=== PATIENT | male | born 2000 ===

== ENCOUNTER 2020-03-19 04:20 | Emergency (ER) | payer SELFPAY ==
[2020-03-19] MEDS ORDERED: SODIUM CHLORIDE 0.9% 1000 ML 1,000 ML IV ONE (04:37)
--- NOTE | 2020-03-19 04:56 | XRay Report ---
RIGHT SHOULDER 3 VIEW INDICATION / CLINICAL INFORMATION: fall with pain and lac. COMPARISON: None available. FINDINGS: BONES/JOINT(S): No acute fracture or subluxation. No significant degenerative changes. SOFT TISSUES: No significant abnormality. No radiopaque foreign bodies or soft tissue gas. ADDITIONAL FINDINGS: None. Signer Name: Conner Anguiano MD Signed: 03/19/2020 4:51 AM Workstation Name: [id number]
[2020-03-19] MEDS ORDERED: oxyCODONE /ACETAMINOPHEN 5-325MG TAB PO ONE (05:02)
[2020-03-19] MEDS ORDERED: ONDANSETRON 4 MG ODT TAB PO ONE (05:02)
[2020-03-19] MEDS ORDERED: LIDOCAINE (1%) 10 MG/1 ML VIAL 20 ML MDV INFILTRATI ONE (05:18)
[2020-03-19] MEDS ORDERED: SODIUM CHLORIDE 0.9% IRR 500 ML BOTTLE IR ONE (05:21)
[2020-03-19 05:25] LABS: Basophils # (Auto) 0.1 K/mm3 (0.0-0.1); Basophils % (Auto) 0.4 % (0.0-1.8); Eosinophils # (Auto) 0.3 K/mm3 (0.0-0.4); Eosinophils % (Auto) 2.2 % (0.0-4.3); Hematocrit 43.4 % (35.5-45.6); Hemoglobin 14.8 gm/dl (11.8-15.2); Lymphocytes # (Auto) 2.8 K/mm3 (1.2-5.4); Lymphocytes % (Auto) 19.9 % (13.4-35.0); Mean Corpuscular HGB Conc 34 % (32-34); Mean Corpuscular Volume 92 fl (84-94); Monocytes % (Auto) 6.7 % (0.0-7.3); Platelet Count 233 K/mm3 (140-440); Red Blood Count 4.72 M/mm3 (3.65-5.03); Red Cell Distribution Width 13.3 % (13.2-15.2)
[2020-03-19 05:27] LABS: Alanine Aminotransferase 25 units/L (7-56); Albumin 4.9 g/dL (3.9-5); BUN/Creatinine Ratio 12; Blood Urea Nitrogen 13 mg/dL (9-20); Calcium 9.9 mg/dL (8.4-10.2); Hemolysis Index 4
[2020-03-19] MEDS ORDERED: DIPHtheria,PERTUSSIS(ACELL),TETANUS VACCINE/PF 0.5 ML VIAL IM ONE (05:41)
--- NOTE | 2020-03-19 05:46 | Cat Scan Report ---
CT head/brain wo con INDICATION: Head injury, loss of consciousness. TECHNIQUE: Routine CT head without contrast. All CT scans at this location are performed using CT dose reduction for ALARA by means of automated exposure control. COMPARISON: None. FINDINGS: BRAIN / INTRACRANIAL CONTENTS: No acute hemorrhage, brain edema, mass effect, or hydrocephalus. Cathie l peter-white differentiation. No chronic infarct or focal atrophy. Normal brain volume and ventricula r/sulcal size for age. CALVARIUM/SKULL BASE/CRANIOCERVICAL JUNCTION: No evidence of fracture. ORBITS: No significant abnormality of visualized orbits. SINUSES / MASTOIDS: No significant abnormality of visualized sinuses and mastoid air cells. ADDITIONAL FINDINGS: None. IMPRESSION: 1. No acute post-traumatic intracranial abnormality. Signer Name: Conner Anguaino MD Signed: 03/19/2020 5:41 AM Workstation Name: [id number]
--- NOTE | 2020-03-19 05:51 | Emergency Department Report ---
ED General Adult HPI - General Chief complaint: Wound/Laceration Stated complaint: FALL/LACERATION TO BACK Time Seen by Provider: 03/19/20 05:00 Source: patient Mode of arrival: Ambulatory Limitations: Language Barrier - History of Present Illness Initial comments: 19-year-old male patient presents with complaints of right shoulder laceration x tonight. Patient states he injured her shoulder via a skateboard accident. Patient states he is unsure of exactly what happened because he lost consciousness for an unknown amount of time. He does report a mild headache, but denies any nausea/vomiting, vision changes, dizziness, numbness/tingli ng/weakness in his limbs, neck pain, difficulty with speech/ambulation, back pain, or confusion. He rates his shoulder pain as a 9/10 in severity, but denies any difficulty moving the shoulder. Severity scale (0 -10): 8 - Related Data Previous Rx's Medication Instructions Recorded Last Taken Type Acetaminophen/Codeine [Tylenol 1 tab PO Q6H PRN #10 tab 03/19/20 Unknown Rx /Codeine # 3 tab] Doxycycline Monohydrate 100 mg PO BID 14 Days #28 capsule 03/19/20 Unknown Rx [Doxycycline Monohydrate CAP] Ibuprofen [Motrin 800 MG tab] 800 mg PO Q8HR PRN #21 tablet 03/19/20 Unknown Rx Allergies Allergy/AdvReac Type Severity Reaction Status Date / Time No Known Allergies Allergy Verified 03/19/20 04:29 ED Review of Systems ROS: Stated complaint: FALL/LACERATION TO BACK Other details as noted in HPI Constitutional: denies: fever, malaise Respiratory: denies: shortness of breath Cardiovascular: denies: chest pain Gastrointestinal: denies: abdominal pain, nausea, vomiting Musculoskeletal: arthralgia. denies: back pain Neurological: headache. denies: weakness, numbness, paresthesias, confusion, abnormal gait Hematological/Lymphatic: denies: easy bleeding ED Past Medical Hx - Past Medical History Previous Medical History?: No - Surgical History Past Surgical History?: No - Social History Smoking Status: Never Smoker Substance Use Type: None - Medications Home Medications: Home Medications Medication Instructions Recorded Confirmed Last Taken Type Acetaminophen/Codeine [Tylenol 1 tab PO Q6H PRN #10 tab 03/19/20 Unknown Rx /Codeine # 3 tab] Doxycycline Monohydrate 100 mg PO BID 14 Days #28 capsule 03/19/20 Unknown Rx [Doxycycline Monohydrate CAP] Ibuprofen [Motrin 800 MG tab] 800 mg PO Q8HR PRN #21 tablet 03/19/20 Unknown Rx ED Physical Exam - General Limitations: No Limitations General appearance: alert, in no apparent distress - Head Head exam: Present: atraumatic, normocephalic - Eye Eye exam: Present: normal appearance. Absent: scleral icterus - ENT ENT exam: Present: mucous membranes moist - Neck Neck exam: Present: normal inspection, full ROM. Absent: tenderness - Respiratory Respiratory exam: Present: normal lung sounds bilaterally. Absent: respiratory distress - Cardiovascular Cardiovascular Exam: Present: regular rate, normal rhythm, normal heart sounds - GI/Abdominal GI/Abdominal exam: Present: soft. Absent: distended, tenderness, guarding, rebound, rigid - Extremities Exam Extremities exam: Present: full ROM, other (11 cm wide jagged laceration noted to right upper shoulder without active bleeding-please see image in MDM) - Expanded Upper Extremity Exam Right Shoulder Exam: Present: full ROM, tenderness, laceration. Absent: deformity, tenderness over AC joint - Back Exam Back exam: Present: normal inspection. Absent: tenderness - Neurological Exam Neurological exam: Present: alert, oriented X3, CN II-XII intact, normal gait. Absent: motor sensory deficit - Expanded Neurological Exam Expanded Cerebellar function: Finger to Nose: Normal, Heel to Bernard: Normal, Romberg: Normal - Psychiatric Psychiatric exam: Present: normal affect, normal mood - Skin Skin exam: Present: warm, dry ED Course Vital Signs 03/19/20 03/19/20 03/19/20 04:26 05:01 05:02 Temperature 98.7 F Pulse Rate 92 H 72 69 Respiratory 18 12 15 Rate Blood Pressure 89/60 Blood Pressure 98/57 [Left] O2 Sat by Pulse 98 100 98 Oximetry 03/19/20 03/19/20 03/19/20 05:15 05:31 05:45 Temperature Pulse Rate 68 81 80 Respiratory 25 H 11 L 22 Rate Blood Pressure 98/57 98/57 98/57 Blood Pressure [Left] O2 Sat by Pulse 100 100 Oximetry 03/19/20 03/19/20 03/19/20 06:00 06:15 06:30 Temperature Pulse Rate 66 62 65 Respiratory 13 18 12 Rate Blood Pressure 95/55 98/57 93/51 Blood Pressure [Left] O2 Sat by Pulse 99 100 99 Oximetry 03/19/20 03/19/20 03/19/20 06:45 07:00 07:13 Temperature 98.1 F Pulse Rate 69 Respiratory 18 Rate Blood Pressure 93/51 110/63 Blood Pressure 109/64 [Left] O2 Sat by Pulse 99 100 Oximetry 03/19/20 07:15 Temperature Pulse Rate Respiratory 18 Rate Blood Pressure Blood Pressure [Left] O2 Sat by Pulse Oximetry - Procedure Description Procedures done: Betadine prep to wound. 20 cc of lidocaine without epi used to anesthetize area around wound. Wound thoroughly irrigated with 500 cc of saline. Extensive debridement of wound performed. Wet-to-dry dressing placed over wound. Patient tolerated procedure well without any immediate complications. ED Medical Decision Making - Lab Data Result diagrams: 03/19/20 04:48 03/19/20 04:48 Lab Results 03/19/20 03/19/20 Range/Units 04:48 04:48 WBC 14.3 H (4.5-11.0) K/mm3 RBC 4.72 (3.65-5.03) M/mm3 Hgb 14.8 (11.8-15.2) gm/dl Hct 43.4 (35.5-45.6) % MCV 92 (84-94) fl MCH 31 (28-32) pg MCHC 34 (32-34) % RDW 13.3 (13.2-15.2) % Plt Count 233 (140-440) K/mm3 Lymph % (Auto) 19.9 (13.4-35.0) % [place] % (Auto) 6.7 (0.0-7.3) % Eos % (Auto) 2.2 (0.0-4.3) % Baso % (Auto) 0.4 (0.0-1.8) % Lymph # (Auto) 2.8 (1.2-5.4) K/mm3 [place] # (Auto) 1.0 H (0.0-0.8) K/mm3 Eos # (Auto) 0.3 (0.0-0.4) K/mm3 Baso # (Auto) 0.1 (0.0-0.1) K/mm3 Seg Neutrophils % 70.8 H (40.0-70.0) % Seg Neutrophils # 10.1 H (1.8-7.7) K/mm3 Sodium 138 (137-145) mmol/L Potassium 3.6 (3.6-5.0) mmol/L Chloride 98.7 (98-107) mmol/L Carbon Dioxide 23 (22-30) mmol/L Anion Gap 20 mmol/L BUN 13 (9-20) mg/dL Creatinine 1.1 (0.8-1.3) mg/dL Estimated GFR > 60 ml/min BUN/Creatinine Ratio 12 % Glucose 114 H (75-100) mg/dL Calcium 9.9 (8.4-10.2) mg/dL Total Bilirubin 0.60 (0.1-1.2) mg/dL AST 37 (5-40) units/L ALT 25 (7-56) units/L Alkaline Phosphatase 90 (35-129) units/L Total Protein 7.2 (6.3-8.2) g/dL Albumin 4.9 (3.9-5) g/dL Albumin/Globulin Ratio 2.1 % - Radiology Data Radiology results: report reviewed CT head/brain wo con INDICATION: Head injury, loss of consciousness. TECHNIQUE: Routine CT head without contrast. All CT scans at this location are performed using CT dose reduction for ALARA by means of automated exposure control. COMPARISON: None. FINDINGS: BRAIN / INTRACRANIAL CONTENTS: No acute hemorrhage, brain edema, mass effect, or hydrocephalus. Normal peter-white differentiation. No chronic infarct or focal atrophy. Normal brain volume and ventricular/sulcal size for age. CALVARIUM/SKULL BASE/CRANIOCERVICAL JUNCTION: No evidence of fracture. ORBITS: No significant abnormality of visualized orbits. SINUSES / MASTOIDS: No significant abnormality of visualized sinuses and mastoid air cells. ADDITIONAL FINDINGS: None. IMPRESSION: 1. No acute post-traumatic intracranial abnormality. RIGHT SHOULDER 3 VIEW INDICATION / CLINICAL INFORMATION: fall with pain and lac. COMPARISON: None available. FINDINGS: BONES/JOINT(S): No acute fracture or subluxation. No significant degenerative changes. SOFT TISSUES: No significant abnormality. No radiopaque foreign bodies or soft tissue gas. ADDITIONAL FINDINGS: None. - Medical Decision Making 19-year-old male patient presents with complaints of right shoulder laceration x tonight. Patient states he injured her shoulder via a skateboard accident. Patient states he is unsure of exactly what happened because he lost consciousness for an unknown amount of time. He does report a mild headache, but denies any nausea/vomiting, vision changes, dizziness, numbness/tingling/weakness in his limbs, neck pain, difficulty with speech/ambulation, back pain, or confusion. He rates his shoulder pain as a 9/10 in severity, but denies any difficulty moving the shoulder. Patient mildly hypotensive with a BP of 89/60. Labs were ordered to further assess hypotension. CBC and CMP are normal. Patient given [address] head is normal. X-ray of the shoulder is negative for fracture. Significant laceration with road rash. Discussed patient in detail with Dr. Hoyt- recommended debridement and leaving wound open with placement of a wet-to-dry dressing. Patient given dose of doxycycline here in ED. Discussed in great detail importance of follow-up with wound care tomorrow. Also discussed wound care and signs and symptoms of infection that should prompt immediate return to the ED, patient verbalized understanding. Prescription for Doxy given for home. His vitals are normal, he is well-appearing, and stable for discharge home. Patient to also follow-up with primary care concerning for possible concussion. Discussed importance of brain rest and caregiver monitoring for the next 24 hours. Critical care attestation.: If time is entered above; I have spent that time in minutes in the direct care of this critically ill patient, excluding procedure time. ED Disposition Clinical Impression: Head injury with loss of consciousness Laceration of right shoulder Qualifiers: Encounter type: initial encounter Qualified Code(s): S41.011A - Laceration without foreign body of right shoulder, initial encounter Contusion of right shoulder Qualifiers: Encounter type: initial encounter Qualified Code(s): S40.011A - Contusion of right shoulder, initial encounter Disposition: DC-01 TO HOME OR SELFCARE Is pt being admited?: No Condition: Stable Instructions: Concussion (ED), Acute Wound Care (ED) Prescriptions: Doxycycline Monohydrate [Doxycycline Monohydrate CAP] 100 mg PO BID 14 Days #28 capsule Ibuprofen [Motrin 800 MG tab] 800 mg PO Q8HR PRN #21 tablet PRN Reason: Pain, Moderate (4-6) Acetaminophen/Codeine [Tylenol /Codeine # 3 tab] 1 tab PO Q6H PRN #10 tab PRN Reason: Pain , Severe (7-10) Referrals: [facility] [Outside] - 24 Hours [facility] [Provider Group] - 2-3 Days Print Language: NAURU[place]
[2020-03-19] MEDS ORDERED: DOXYCYCLINE 100 MG CAP PO ONE (07:03)
[2020-03-19 07:14] VITALS: BP 109/64
== END 2020-03-19 08:22 | disposition home or self-care (01) ==
LOC: ED 04:20
DX: S41.011A Laceration without foreign body of right shoulder, initial encounter (principal); S06.9X9A Unspecified intracranial injury with loss of consciousness of unspecified duration, initial encounter; Z79.899 Other long term (current) drug therapy; W17.89XA Other fall from one level to another, initial encounter; Y93.51 Activity, roller skating (inline) and skateboarding; Y92.89 Other specified places as the place of occurrence of the external cause; Y99.8 Other external cause status
CPT/HCPCS: 36415; 70450; 73030; 80053; 85025; 90471; 90715; 96360; 96361; 99284; J7030; Q0162